=== PATIENT | male | born 1960 | race Caucasian/White ===

== ENCOUNTER 2022-08-06 11:33 | Observation (INO) | payer MEDICARE ==
[~2022-08-06] VITALS: Ht 170 cm; Wt 93.3 kg
[~2022-08-06 11:33] MED LIST: METH-732 PO; NAPR-1070 PO
[2022-08-06 13:22] LABS: BASOPHILS # (AUTO) 0.1 10^3/uL (0.0-0.1); BASOPHILS % (AUTO) 1 % (0-10); EOSINOPHILS # (AUTO) 0.2 10^3/uL (0.0-0.3); EOSINOPHILS % (AUTO) 3 % (0-10); HEMATOCRIT 37 % (40-54); HEMOGLOBIN 13.1 g/dL (13.3-17.7); LYMPHOCYTES # (AUTO) 2.3 10^3/uL (1.0-4.0); LYMPHOCYTES % (AUTO) 31 % (12-44); MEAN CORPUSCULAR HEMOGLOBIN 32 pg (25-34); MEAN CORPUSCULAR HGB CONC 35 g/dL (32-36); MEAN CORPUSCULAR VOLUME 90 fL (80-99); MEAN PLATELET VOLUME 10.7 fL (9.0-12.2); MONOCYTES # (AUTO) 0.7 10^3/uL (0.0-1.0); MONOCYTES % (AUTO) 9 % (0-12); NEUTROPHILS # (AUTO) 4.1 10^3/uL (1.8-7.8); NEUTROPHILS % (AUTO) 56 % (42-75); PLATELET COUNT 161 10^3/uL (130-400); WHITE BLOOD COUNT 7.3 10^3/uL (4.3-11.0)
--- NOTE | 2022-08-06 13:24 | ED GI ---
General Chief Complaint: Abdominal/GI Problems Stated Complaint: VOMITING | HEART PT | DIABETIC Nursing Triage Note: NVD FOR 4-5 DAYS, BLACK STOOL AND BLACK VOMIT,EVERY DAY VOMITED 0400 THIS A.M. Source of Information: Patient Exam Limitations: No Limitations History of Present Illness Date Seen by Provider: Aug 06, 2022 Time Seen by Provider: 12:15 Initial Comments Patient is a 62-year-old male who presents to the emergency department for relation of 4 to 5 days of vomiting and diarrhea. Patient states he typically only has vomiting in the morning. His states that the vomiting has been coffee-ground emesis in appearance and he has had dark black diarrhea. Patient denies any abdominal pain at the time of this interview but states he has had intermittent right upper quadrant abdominal pain. States he has been able to eat and drink without worsening of the pain. Denies any urinary symptoms. Denies any fever. Denies taking any anticoagulants at this time. No history of coagulopathies or bleeding diatheses. No recent prolonged NSAID use. Allergies and Home Medications Allergies Coded Allergies: Penicillins (Verified Allergy, Severe, RASH, 11/28/21) Patient Home Medication List Home Medication List Reviewed: Yes Methocarbamol (Methocarbamol) 750 Mg Tablet, 750 MG PO Q6-8HR Prescribed by: ARI WORKMAN on 11/28/21 1037 Naproxen Sodium (Anaprox Ds) 550 Mg Tablet, 550 MG PO BID PRN for PAIN-MODERATE (5-7) Prescribed by: ARI WORKMAN on 11/28/21 1037 Review of Systems Review of Systems Constitutional: no symptoms reported EENTM: No Symptoms Reported Respiratory: No Symptoms Reported Cardiovascular: No Symptoms Reported Gastrointestinal: See HPI, Diarrhea, Nausea, Vomiting Genitourinary: No Symptoms Reported Musculoskeletal: no symptoms reported Skin: no symptoms reported Psychiatric/Neurological: No Symptoms Reported Endocrine: No Symptoms Reported Hematologic/Lymphatic: No Symptoms Reported Past Hkriwaq-Gzgbyi-Wdqtoe Hx Patient Social History Tobacco Use?: Yes Tobacco type used: Cigarettes Smoking Status: Current Everyday Smoker Substance use?: Yes Substance type: Marijuana Alcohol Use?: No Past Medical History Surgery/Hospitalization HX: CABG, STENT, DIABETIC TYPE II, COPD, CHRONIC PAIN, APPENDECTOMY, NECK SURGERY 2 X'S Physical Exam Vital Signs Vital Signs - First Documented 08/06/22 12:12 Temp 36.5 Pulse 66 Resp 18 B/P (MAP) 133/56 (81) Pulse Ox 100 O2 Delivery Room Air Capillary Refill : Less Than 3 Seconds Height/Weight/BMI Height: '" Weight: lbs. oz. kg; 30.00 BMI Method: General Appearance: WD/WN, no apparent distress HEENT: PERRL/EOMI, normal ENT inspection, TMs normal, pharynx normal Neck: non-tender, full range of motion, supple, normal inspection Respiratory: chest non-tender, lungs clear, normal breath sounds, no respiratory distress, no accessory muscle use Cardiovascular: regular rate, rhythm Gastrointestinal: normal bowel sounds, non tender, soft Extremities: normal range of motion, non-tender, normal inspection Neurologic/Psychiatric: no motor/sensory deficits, alert, normal mood/affect, oriented x 3 Skin: normal color, warm/dry Progress/Results/Core Measures Results/Orders Lab Results Laboratory Tests Test 08/06/22 12:17 08/06/22 13:03 08/06/22 13:50 08/06/22 14:18 Range/Units Glucometer 98 70-110 MG/DL White Blood Count 7.3 4.3-11.0 10^3/uL Red Blood Count 4.14 L 4.30-5.52 10^6/uL Hemoglobin 13.1 L 13.3-17.7 g/dL Hematocrit 37 L 40-54 % Mean Corpuscular Volume 90 80-99 fL Mean Corpuscular Hemoglobin 32 25-34 pg Mean Corpuscular Hemoglobin Concent 35 32-36 g/dL Red Cell Distribution Width 13.9 10.0-14.5 % Platelet Count 161 130-400 10^3/uL Mean Platelet Volume 10.7 9.0-12.2 fL Immature Granulocyte % (Auto) 0 % Neutrophils (%) (Auto) 56 42-75 % Lymphocytes (%) (Auto) 31 12-44 % Monocytes (%) (Auto) 9 0-12 % Eosinophils (%) (Auto) 3 0-10 % Basophils (%) (Auto) 1 0-10 % Neutrophils # (Auto) 4.1 1.8-7.8 10^3/uL Lymphocytes # (Auto) 2.3 1.0-4.0 10^3/uL Monocytes # (Auto) 0.7 0.0-1.0 10^3/uL Eosinophils # (Auto) 0.2 0.0-0.3 10^3/uL Basophils # (Auto) 0.1 0.0-0.1 10^3/uL Immature Granulocyte # (Auto) 0.0 0.0-0.1 10^3/uL Sodium Level 136 135 135-145 MMOL/L Potassium Level 5.4 H 5.3 H 3.6-5.0 MMOL/L Chloride Level 105 105 98-107 MMOL/L Carbon Dioxide Level 20 L 19 L 21-32 MMOL/L Anion Gap 11 11 5-14 MMOL/L Blood Urea Nitrogen 55 H 55 H 7-18 MG/DL Creatinine 6.17 H 5.98 H 0.60-1.30 MG/DL Estimat Glomerular Filtration Rate 10 10 BUN/Creatinine Ratio 9 9 Glucose Level 107 H 98 70-105 MG/DL Calcium Level 9.5 9.2 8.5-10.1 MG/DL Corrected Calcium 9.3 8.5-10.1 MG/DL Total Bilirubin 0.6 0.1-1.0 MG/DL Aspartate Amino Transf (AST/SGOT) 15 5-34 U/L Alanine Aminotransferase (ALT/SGPT) 10 0-55 U/L Alkaline Phosphatase 101 40-136 U/L Total Protein 7.7 6.4-8.2 GM/DL Albumin 4.2 3.2-4.5 GM/DL Lipase 99 H 8-78 U/L Uric Acid 16.1 *H 2.6-7.2 MG/DL Urine Color YELLOW Urine Clarity CLEAR Urine pH 5.0 5-9 Urine Specific [place] >=1.030 1.016-1.022 Urine Protein TRACE H NEGATIVE Urine Glucose (UA) NEGATIVE NEGATIVE Urine Ketones NEGATIVE NEGATIVE Urine Nitrite NEGATIVE NEGATIVE Urine Bilirubin NEGATIVE NEGATIVE Urine Urobilinogen 0.2 < = 1.0 MG/DL Urine Leukocyte Esterase NEGATIVE NEGATIVE Urine RBC (Auto) TRACE-I H NEGATIVE Urine RBC RARE /HPF Urine WBC RARE /HPF Urine Squamous Epithelial Cells RARE /HPF Urine Crystals NONE /LPF Urine Bacteria NEGATIVE /HPF Urine Casts NONE /LPF Urine Mucus NEGATIVE /LPF Urine Culture Indicated NO My Orders Orders - OLIVE LAWSON RESIDENTIAL DESIGNER Cbc With Automated Diff (08/06/22 13:17) Comprehensive Metabolic Panel (08/06/22 13:17) Lipase (08/06/22 13:17) Iv/Invasive Line Insertion .IV INSERT (08/06/22 13:17) Lactated Ringers (Lr 1000 Ml Iv Solution (08/06/22 13:45) Ua Culture If Indicated (08/06/22 13:45) Bladder Scan (08/06/22 13:45) Basic Metabolic Panel (08/06/22 13:45) Us Renal Bilateral [id number] (08/06/22 15:21) Uric Acid (08/06/22 15:22) Ed Admission (Communication) (08/06/22 15:37) Vital Signs/I&O 08/06/22 12:12 Temp 36.5 Pulse 66 Resp 18 B/P (MAP) 133/56 (81) Pulse Ox 100 O2 Delivery Room Air Blood Pressure Mean: 81 FSBG Bedside Testing Finger Stick Blood Glucose: 98 Blood Glucose Action Taken: INFORMED Progress Progress Note : Progress Note Patient is nontoxic and well-hydrated on exam. Abdominal exam is reassuring without focal provocation of pain with palpation or rigidity/distention. Laboratory evaluation notable for markedly elevated creatinine. Urinalysis obtained which is reassuring. Will admit for further evaluation and treatment. Patient updated on plan of care and understanding verbalized. Hospitalist darek tabor agreed to admit. Departure Impression Primary Impression: PACO (acute kidney injury) Disposition: ADMITTED INPATIENT Condition: Stable Admissions Decision to Admit/Date: Aug 06, 2022 Time/Decision to Admit Time: 15:20 Departure-Patient Inst. Referrals: NILESH TERRAZAS (PCP/Family) Primary Care Physician OLIVE LAWSON APRN Aug 06, 2022 13:24
[2022-08-06 13:25] LABS: ALBUMIN 4.2 GM/DL (3.2-4.5)
[2022-08-06 13:26] LABS: POTASSIUM 5.4 MMOL/L (3.6-5.0)
[2022-08-06 13:27] LABS: CALCIUM 9.5 MG/DL (8.5-10.1)
[2022-08-06 13:28] LABS: TOTAL PROTEIN 7.7 GM/DL (6.4-8.2)
[2022-08-06 13:30] LABS: BILIRUBIN,TOTAL 0.6 MG/DL (0.1-1.0)
[2022-08-06 13:32] LABS: CREATININE SERUM 6.17 MG/DL (0.60-1.30)
[2022-08-06] MEDS ORDERED: LACTATED RINGERS 1,000 ML IV SCH (13:45)
[2022-08-06 14:12] LABS: CALCIUM 9.2 MG/DL (8.5-10.1); CREATININE SERUM 5.98 MG/DL (0.60-1.30); POTASSIUM 5.3 MMOL/L (3.6-5.0)
[2022-08-06 14:32] LABS: BILIRUBIN,URINE NEGATIVE (NEGATIVE); CLARITY,URINE CLEAR; COLOR,URINE YELLOW; GLUCOSE, URINE (UA) NEGATIVE (NEGATIVE); KETONES,URINE NEGATIVE (NEGATIVE); LEUKOCYTE ESTERASE ,URINE NEGATIVE (NEGATIVE); NITRITE,URINE NEGATIVE (NEGATIVE); PROTEIN,URINE TRACE (NEGATIVE)
[2022-08-06 14:40] LABS: BACTERIA,URINE NEGATIVE /HPF; RBC,URINE RARE /HPF; SQUAMOUS EPITHELIAL CELL,UR RARE /HPF; WBC,URINE RARE /HPF
--- NOTE | 2022-08-06 16:16 | Diagnostic Imaging Report ---
PROCEDURE: US renal bilateral. TECHNIQUE: Multiple real-time grayscale images were obtained over the kidneys in various projections, bilaterally. INDICATION: Renal failure. FINDINGS: Right kidney measures 12.0 x 5.6 x 6.6 cm. Left kidney measures 11.3 x 5.8 x 6.1 cm. There is no mass, calculus or hydronephrosis seen in either kidney. The urinary bladder appears normal. Both ureteral jets are seen. IMPRESSION: Normal-appearing renal ultrasound. Dictated by: Dictated on workstation # [id number]
[2022-08-06] MEDS ORDERED: MILK OF MAGNESIA 400 MG/5 ML 30 ML UDC PO PRN (20:45)
[2022-08-06] MEDS ORDERED: CALCIUM CARBONATE 500 MG (TUMS) TAB.CHEW PO PRN (20:45)
[2022-08-06] MEDS ORDERED: HYDROmorphone 2 MG/ML VIAL (DILAUDID) IV PRN (20:45)
[2022-08-06] MEDS ORDERED: LACTULOSE SYRUP 10GM/15ML (ENULOSE) 30ML UDC PO PRN (20:45)
[2022-08-06] MEDS ORDERED: ANTACID SUSP 30 ML UDC (MYLANTA) PO PRN (20:45)
[2022-08-06] MEDS ORDERED: diphenhydrAMINE 25 MG TAB (BENADRYL) PO PRN (20:45)
[2022-08-06] MEDS ORDERED: cloNIDine 0.1 MG (CATAPRES) TAB PO PRN (20:45)
[2022-08-06] MEDS ORDERED: ACETAMINOPHEN 325 MG TABLET PO PRN (20:45)
[2022-08-06] MEDS ORDERED: SODIUM POLYSTYRENE POWDER 15 GM BOTTLE PO ONE (20:45)
[2022-08-06] MEDS ORDERED: polyethylene glycoL POWDER 17 GM (MIRALAX) PACK PO PRN (20:45)
[2022-08-06] MEDS ORDERED: BISACODYL 10 MG SUPP (DULCOLAX) PR PRN (20:45)
[2022-08-06] MEDS ORDERED: diphenhydrAMINE 50 MG/ML INJ (BENADRYL) IVP PRN (20:45)
[2022-08-06] MEDS ORDERED: MELATONIN 3 MG TABLET PO PRN (20:45)
[2022-08-06] MEDS ORDERED: ONDANSETRON 4 MG (ZOFRAN) ORAL DISSOLVE TAB PO PRN (20:45)
[2022-08-06] MEDS: NS IV 1000 ML 1,000 ML IV SCH (21:43)
[2022-08-06] MEDS: DOCUSATE SODIUM 100 MG (COLACE) CAP PO SCH (21:43)
[2022-08-06] MEDS: SENNOSIDES 8.6 MG (SENOKOT) TAB PO SCH (21:43)
[2022-08-06] MEDS: SODIUM BICARBONATE 650 MG TABLET PO SCH (21:46)
[2022-08-06] MEDS: inSUlin ASPART (NovoLOG) 1 UNIT/0.01 ML (CHARGE PER UNIT) SC SCH (21:47)
[2022-08-06 21:54] VITALS: BP 133/56
[2022-08-06] MEDS ORDERED: RT-ALBUTEROL SULF 2.5 MG/3 ML PRE-MIX VIAL INH PRN (22:15)
[2022-08-07 00:11] VITALS: BP 161/72
[2022-08-07 03:24] VITALS: BP 147/73
[2022-08-07] MEDS: NS IV 1000 ML 1,000 ML IV SCH ×5 (03:24→23:02)
--- NOTE | 2022-08-07 05:58 | Short Stay Summary-Hospitalist ---
History of Present Illness Date Seen 08/07/22 Time Seen by a Provider: 11:30 Attending Physician Josue Harrison PCP Admitting Physician: Kenyatta Ornelas DO Attending Physician: Kenyatta Ornelas DO Referring Physician Date of Admission Aug 06, 2022 at 15:38 Home Medications & Allergies Home Medications Reviewed patient Home Medication Reconciliation performed by pharmacy medication reconciliations water and fire technician and/or nursing. Patients Allergies have been reviewed. Allergies Allergies Coded Allergies Penicillins (Verified Allergy, Severe, RASH, 11/28/21) Past Ehylbdw-Vpzsap-Sumbyz Hx Patient Social History Tobacco Use?: Yes Tobacco type used: Cigarettes Smoking Status: Current Everyday Smoker Substance use?: Yes Substance type: Marijuana Alcohol Use?: No Pt feels they are or have been: No Immunizations Up To Date Tetanus Booster (TDap): Unknown Current Status Primary Language: Welsh Preferred Spoken Language: Welsh Implanted or Applied Medical D: Orthopedic hardware, Stents Physical Exam Physical Exam Vital Signs Vital Signs - First Documented 08/06/22 08/06/22 08/07/22 12:12 21:54 08:19 Temp 36.5 Pulse 66 Resp 18 B/P (MAP) 133/56 (81) Pulse Ox 100 O2 Delivery Room Air O2 Flow Rate 0.00 FiO2 21 Capillary Refill : Less Than 3 Seconds Height, Weight, BMI Height: '" Weight: lbs. oz. kg; 30.65 BMI Method: Results Results/Procedures Labs Laboratory Tests 08/06/22 13:03 08/06/22 13:50 08/07/22 05:57 Patient resulted labs reviewed. KENYATTA ORNELAS DO Aug 07, 2022 05:58
[2022-08-07 06:10] LABS: BASOPHILS # (AUTO) 0.1 10^3/uL (0.0-0.1); BASOPHILS % (AUTO) 1 % (0-10); LYMPHOCYTES # (AUTO) 2.4 10^3/uL (1.0-4.0); MEAN CORPUSCULAR HGB CONC 35 g/dL (32-36); NEUTROPHILS % (AUTO) 45 % (42-75)
[2022-08-07 06:12] LABS: EOSINOPHILS # (AUTO) 0.2 10^3/uL (0.0-0.3); EOSINOPHILS % (AUTO) 4 % (0-10); HEMATOCRIT 34 % (40-54); HEMOGLOBIN 12.1 g/dL (13.3-17.7); LYMPHOCYTES % (AUTO) 40 % (12-44); MEAN CORPUSCULAR HEMOGLOBIN 32 pg (25-34); MEAN CORPUSCULAR VOLUME 90 fL (80-99); MEAN PLATELET VOLUME 10.7 fL (9.0-12.2); MONOCYTES # (AUTO) 0.6 10^3/uL (0.0-1.0); MONOCYTES % (AUTO) 10 % (0-12); NEUTROPHILS # (AUTO) 2.7 10^3/uL (1.8-7.8); PLATELET COUNT 133 10^3/uL (130-400)
[2022-08-07] MEDS: inSUlin ASPART (NovoLOG) 1 UNIT/0.01 ML (CHARGE PER UNIT) SC SCH ×4 (06:19→20:41)
[2022-08-07 06:24] LABS: ALBUMIN 3.7 GM/DL (3.2-4.5); BILIRUBIN,TOTAL 0.5 MG/DL (0.1-1.0); CALCIUM 8.8 MG/DL (8.5-10.1); CREATININE SERUM 5.5 MG/DL (0.60-1.30); POTASSIUM 5.1 MMOL/L (3.6-5.0)
[2022-08-07 07:58] VITALS: BP 165/78
[2022-08-07] MEDS: DOCUSATE SODIUM 100 MG (COLACE) CAP PO SCH ×2 (08:45→21:00)
[2022-08-07] MEDS: SENNOSIDES 8.6 MG (SENOKOT) TAB PO SCH ×2 (08:45→21:00)
[2022-08-07] MEDS: SODIUM BICARBONATE 650 MG TABLET PO SCH ×2 (08:47→21:35)
[2022-08-07] MEDS ORDERED: CITA20TA9 PO (10:41)
[2022-08-07] MEDS ORDERED: LORA10TA7 PO (10:41)
[2022-08-07] MEDS ORDERED: METO50TA15 PO (10:41)
[2022-08-07] MEDS ORDERED: GLIP1TAB6 PO (10:41)
[2022-08-07] MEDS ORDERED: ASPI-1238 PO (10:41)
[2022-08-07] MEDS ORDERED: ATOR80TA76 PO (10:41)
[2022-08-07] MEDS ORDERED: PANT20TA18 PO (10:41)
[2022-08-07] MEDS ORDERED: LISI20TA26 PO (10:41)
[2022-08-07 11:07] VITALS: BP 164/76
--- NOTE | 2022-08-07 14:24 | Consultation ---
History of Present Illness History of Present Illness Patient Consulted On(dirk/time) 08/07/22 14:23 Date Seen by Provider: Aug 07, 2022 (n) Time Seen by Provider: 14:23 Reason for Visit: Paco History of Present Illness Pt is a very pleasant 62 y/o M with h/o dm, copd, HTN, and CAD s/p cabg and pci who was admitted with n/v/d. Noted to have a creatinine of almost 6. Denies h/o renal disease. Pt has been having n/v for several days along with diarrhea. 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 Denies nsaid use. Also on lisinopril. Takes baby aspirin per day. Pt did not check his bp at home but did feel dizzy for at least 1 days after several days of n/v/d. Allergies and Home Medications Allergies Coded Allergies: Penicillins (Verified Allergy, Severe, RASH, 11/28/21) Patient Home Medication List Home Medication List Reviewed: Yes Aspirin (Aspirin EC) 81 Mg Tablet.dr, 81 MG PO DAILY, (Reported) Entered as Reported by: BALA CERVANTES on 08/07/221040 Last Action: Held Atorvastatin Calcium (Atorvastatin Calcium) 80 Mg Tablet, 80 MG PO DAILY, (Reported) Entered as Reported by: BALA CERVANTES on 08/07/221040 Last Action: Held Citalopram Hydrobromide (Citalopram HBr) 20 Mg Tablet, 20 MG PO DAILY, (Reported) Entered as Reported by: BALA CERVANTES on 08/07/221040 Last Action: Continued Glipizide/Metformin HCl (Glipizide-Metformin 5-500 mg) 5 Mg-500 Mg Tablet, 2 EA PO BID WITH MEALS, (Reported) Entered as Reported by: BALA CERVANTES on 08/07/221040 Last Action: Held Lisinopril (Lisinopril) 20 Mg Tablet, 20 MG PO DAILY, (Reported) Entered as Reported by: BALA CERVANTES on 08/07/221040 Last Action: Held Loratadine (Loratadine) 10 Mg Tablet, 10 MG PO DAILY, (Reported) Entered as Reported by: BALA CERVANTES on 08/07/221040 Last Action: Continued Metoprolol Tartrate (Metoprolol Tartrate) 50 Mg Tablet, 50 MG PO BID, (Reported) Entered as Reported by: BALA CERVANTES on 08/07/22 1041 Last Action: Continued Pantoprazole Sodium (Pantoprazole Sodium) 20 Mg Tablet.dr, 20 MG PO DAILY, (Reported) Entered as Reported by: BALA CERVANTES on 08/07/22 1041 Last Action: Continued Discontinued Medications Methocarbamol (Methocarbamol) 750 Mg Tablet, 750 MG PO Q6-8HR Discontinued Reason: No Longer Taking Prescribed by: ARI WORKMAN on 11/28/21 1037 Last Action: Discontinued Naproxen Sodium (Anaprox Ds) 550 Mg Tablet, 550 MG PO BID PRN for PAIN-MODERATE (5-7) Discontinued Reason: No Longer Taking Prescribed by: ARI WORKMAN on 11/28/21 1037 Last Action: Discontinued Past Jmpatzn-Rzlarz-Wqhofj Hx Patient Social History Tobacco Use?: Yes Tobacco type used: Cigarettes Smoking Status: Current Everyday Smoker Substance use?: Yes Substance type: Marijuana Alcohol Use?: No Pt feels they are or have been: No Immunizations Up To Date Influenza Vaccine Up-to-Date: No; Not Current Past Medical History Surgery/Hospitalization HX: CABG, STENT, DIABETIC TYPE II, COPD, CHRONIC PAIN, APPENDECTOMY, NECK SURGERY 2 X'S Review of Systems-General Constitutional: see HPI Physical Exam-General Problems Physical Exam Vital Signs Vital Signs - First Documented 08/06/22 08/06/22 08/07/22 12:12 21:54 08:19 Temp 36.5 Pulse 66 Resp 18 B/P (MAP) 133/56 (81) Pulse Ox 100 O2 Delivery Room Air O2 Flow Rate 0.00 FiO2 21 Capillary Refill : Less Than 3 Seconds General Appearance: no apparent distress Neck: supple Cardiovascular: no JVD Neurologic/Psychiatric: oriented x 3 Skin: normal color Assessment/Plan Assessment/Plan Admission Diagnosis/Plan PACO baseline normal renal u/s unrevealing Cr up to 6.17 and slightly better at 5.5 today suspect ATN in setting of volume depletion and probable hypotension while on lisinopril denies nsaids and discussed avoiding them HOLD lisinopril on dc and do not resume until paco resolves renally dose meds recommend continuing to volume expand repeat uric acid in am to ensure it is trending down If cr improving tomorrow, then will plan to f/u 08/11 in my [facility] with repeat labs; pt understands and is agreeable n/v/d supportive care prn meds ordered high uric acid likely due to volume depletion should improve with volume expansion met acidosis recommend na bicarb 1300 bid Thank you for allowing me to participate in the care of this very pleasant pat ient. MAYCOL CABRERA MD Aug 07, 2022 14:24
[2022-08-07 16:02] VITALS: BP 145/75
--- NOTE | 2022-08-07 16:05 | History & Physical-Hospitalist ---
PETER MOJICA 08/07/22 1605: History of Present Illness HPI/Chief Complaint George Mott is a 62-year-old male who presented to the emergency department for relation of 4 to 5 days of vomiting and diarrhea 08/06/22. Patient states he typically only has vomiting in the morning. His states that the vomiting has been coffee-ground emesis in appearance and he has had dark black diarrhea. Patient denies any abdominal pain at the time of this interview but states he has had intermittent right upper quadrant abdominal pain. States he has been able to eat and drink without worsening of the pain. Denies any urinary symptoms. Denies any fever. Denies taking any anticoagulants at this time. No history of coagulopathies or bleeding diatheses. No recent prolonged NSAID use. Today Pt was seen lying in bed, and mentioned that he drank coffee with beakfast and it made his RUQ hurt, his history is suspicious of duodenal ulcer, but he is most concerned of his PACO. Pt consulted with Dr. Salmon in Nephrology, who suggested regulating his fluids and then following up with her on 08/11/22. George was very pleasent and denied any BM or vomiting in the last 24hrs. His Uric acid levels will be monitored tomorrow to confirm volume correction, and he has agreed to being DCd tomorrow if everything looks improved. Source: patient Date Seen 08/07/22 Time Seen by a Provider: 10:10 Attending Physician Josue Harrison PCP Admitting Physician: Kenyatta Kohli DO Attending Physician: Kenyatta Kohli DO Referring Physician Date of Admission Aug 06, 2022 at 15:38 Home Medications & Allergies Home Medications Reviewed patient Home Medication Reconciliation performed by pharmacy medication reconciliations weight reducing technician and/or nursing. Patients Allergies have been reviewed. Allergies Allergies Coded Allergies Penicillins (Verified Allergy, Severe, RASH, 11/28/21) Past Mrcrbio-Dkrssf-Tebhfd Hx Patient Social History Marrital Status: Tobacco Use?: Yes Tobacco type used: Cigarettes Smoking Status: Current Everyday Smoker Substance use?: Yes Substance type: Marijuana Alcohol Use?: No Pt feels they are or have been: No Immunizations Up To Date Tetanus Booster (TDap): Unknown Current Status Primary Language: Guinean Preferred Spoken Language: Guinean Implanted or Applied Medical D: Orthopedic hardware, Stents Review of Systems Constitutional: No chills, No diaphoresis, No dizziness, No fever, No malaise EENTM: no symptoms reported Respiratory: no symptoms reported Cardiovascular: no symptoms reported Gastrointestinal: RUQ, diarrhea, nausea, vomiting Genitourinary: no symptoms reported Musculoskeletal: no symptoms reported Skin: no symptoms reported Psychiatric/Neurological: Anxiety Physical Exam Physical Exam Vital Signs Vital Signs - First Documented 08/06/22 08/06/22 08/07/22 12:12 21:54 08:19 Temp 36.5 Pulse 66 Resp 18 B/P (MAP) 133/56 (81) Pulse Ox 100 O2 Delivery Room Air O2 Flow Rate 0.00 FiO2 21 Capillary Refill : Less Than 3 Seconds Height, Weight, BMI Height: '" Weight: lbs. oz. kg; 30.65 BMI Method: General Appearance: No Apparent Distress, WD/WN, Chronically ill Neck: Full Range of Motion, Normal Inspection, Non Tender, Supple Respiratory: Chest Non Tender, Lungs Clear, Normal Breath Sounds, No Accessory Muscle Use, No Respiratory Distress Cardiovascular: Regular Rate, Rhythm, No Edema, No Gallop, No JVD, No Murmur, Normal Peripheral Pulses Gastrointestinal: Normal Bowel Sounds, No Organomegaly, No Pulsatile Mass, Non Tender, Soft Back: Normal Inspection, No CVA Tenderness, No Vertebral Tenderness Extremity: Normal Capillary Refill, Normal Inspection, Normal Range of Motion, Non Tender, No Calf Tenderness Neurologic/Psychiatric: Alert, Oriented x3, No Motor/Sensory Deficits, Normal Mood/Affect Skin: Normal Color, Warm/Dry Lymphatic: No Adenopathy Results Results/Procedures Labs Laboratory Tests 08/06/22 13:03 08/06/22 13:50 08/07/22 05:57 Patient resulted labs reviewed. Assessment/Plan Admission Diagnosis PACO(Acute Kidney Injury) Reason for Inpatient Admission: Volume regulation, kidney monitoring Assessment and Plan A: PACO N/V/D Hyperuricemia Metabolic Acidosis Hyperkalemia HTN DM P: repeat uric acid in am to ensure it is trending down If cr improving tomorrow, then will plan to f/u 08/11 W/ crust sorter in her [facility] supportive care prn meds ordered fluid volume expansion na bicarb 1300 bid KENYATTA KOHLI DO 08/08/22 0538: History of Present Illness Source: patient Exam Limitations: no limitations Past Xylrcdl-Hvsupm-Kipndf Hx Patient Social History Marrital Status: Employed/Student: unemployed Past Medical History Hypertension Diabetes, Non-Insulin dep Review of Systems Constitutional: see HPI, weakness Gastrointestinal: nausea, vomiting Physical Exam Physical Exam General Appearance: No Apparent Distress, Chronically ill Respiratory: Lungs Clear, Normal Breath Sounds Cardiovascular: Regular Rate, Rhythm Assessment/Plan Admission Diagnosis Acute kidney injury Recent nausea and vomiting Diabetes Hypertension Plan: Continue IV fluids Nephrology consult Admission Status: Observation Reason for Inpatient Admission: paco Supervisory-Addendum Brief Verification & Attestation Participated in pt care: history, MDM, physical Personally performed: exam, history, MDM, supervision of care Care discussed with: Medical Student Procedures: n/a Results interpretation: Verified all documentation Verification and Attestation of Medical Student E/M Service A medical student performed and documented this service in my presence. I reviewed and verified all information documented by the medical student and made modifications to such information, when appropriate. I personally performed the physical exam and medical decision making. Kenyatta Kohli, Aug 08, 2022,05:38 PETER MOJICA Aug 07, 2022 16:05 KENYATTA KOHLI DO Aug 08, 2022 05:38
[2022-08-07 19:25] VITALS: BP 175/78
[2022-08-07] MEDS: meTOprolol TARTRATE 50 MG (LOPRESSOR) TAB PO SCH (21:35)
[2022-08-07] MEDS: ONDANSETRON 4 MG/2 ML (SDV) Z0FRAN IV PRN (23:02)
[2022-08-08] VITALS: BP 159/77
[2022-08-08 04:00] VITALS: BP 142/81
[2022-08-08] MEDS: NS IV 1000 ML 1,000 ML IV SCH (05:03)
[2022-08-08] MEDS: inSUlin ASPART (NovoLOG) 1 UNIT/0.01 ML (CHARGE PER UNIT) SC SCH ×2 (05:13→11:47)
[2022-08-08 06:11] LABS: BASOPHILS % (AUTO) 1 % (0-10); EOSINOPHILS # (AUTO) 0.2 10^3/uL (0.0-0.3); EOSINOPHILS % (AUTO) 3 % (0-10); HEMATOCRIT 32 % (40-54); HEMOGLOBIN 11.3 g/dL (13.3-17.7); LYMPHOCYTES # (AUTO) 1.9 10^3/uL (1.0-4.0); LYMPHOCYTES % (AUTO) 35 % (12-44); MEAN CORPUSCULAR HEMOGLOBIN 32 pg (25-34); MEAN CORPUSCULAR HGB CONC 35 g/dL (32-36); MEAN CORPUSCULAR VOLUME 90 fL (80-99); MEAN PLATELET VOLUME 10.5 fL (9.0-12.2); MONOCYTES # (AUTO) 0.4 10^3/uL (0.0-1.0); MONOCYTES % (AUTO) 7 % (0-12); NEUTROPHILS # (AUTO) 2.9 10^3/uL (1.8-7.8); NEUTROPHILS % (AUTO) 54 % (42-75); PLATELET COUNT 124 10^3/uL (130-400); WHITE BLOOD COUNT 5.3 10^3/uL (4.3-11.0)
[2022-08-08] MEDS: ONDANSETRON 4 MG/2 ML (SDV) Z0FRAN IV PRN (06:11)
[2022-08-08 06:35] LABS: ALBUMIN 3.5 GM/DL (3.2-4.5); BILIRUBIN,TOTAL 0.5 MG/DL (0.1-1.0); CALCIUM 8.7 MG/DL (8.5-10.1); CREATININE SERUM 4.61 MG/DL (0.60-1.30); POTASSIUM 5.1 MMOL/L (3.6-5.0); TOTAL PROTEIN 6.5 GM/DL (6.4-8.2)
[2022-08-08 07:31] VITALS: BP 154/72
[2022-08-08] MEDS: meTOprolol TARTRATE 50 MG (LOPRESSOR) TAB PO SCH (08:08)
[2022-08-08] MEDS: SODIUM BICARBONATE 650 MG TABLET PO SCH (08:08)
[2022-08-08] MEDS ORDERED: PANTOPRAZOLE 20 MG TABLET (PROTONIX) PO SCH (09:00)
[2022-08-08] MEDS ORDERED: LORATADINE (CLARITIN) 10 MG TAB PO SCH (09:00)
[2022-08-08] MEDS: DOCUSATE SODIUM 100 MG (COLACE) CAP PO SCH (10:07)
[2022-08-08] MEDS: SENNOSIDES 8.6 MG (SENOKOT) TAB PO SCH (10:07)
[2022-08-08] MEDS ORDERED: NF-SODBICA PO (11:44)
--- NOTE | 2022-08-08 11:46 | Discharge Summary ---
Discharge Summary Hospital Course Was the Problem List Reviewed?: Yes Problems/Dx: (1) PACO (acute kidney injury) Hospital Course Date of Admission: Aug 06, 2022 at 15:38 Admission Diagnosis : Family Physician/Provider: Josue Harrison Date of Discharge: 08/08/22 Discharge Diagnosis: [ ] Hospital Course: Standard hospital course after he was admitted for acute kidney injury from nausea vomiting. Nephrology Dr. Salmon consulted due to profound creatinine of 6.1. Uric acid was elevated consistent with acute kidney injury. His creatinine did improve to the 4 range so several meds were stopped at discharge and he will close follow-up with nephrology. Labs and Pending Lab Test: Laboratory Tests 08/07/22 16:04: Glucometer 205H 08/07/22 16:05: Glucometer 203H 08/07/22 20:32: Glucometer 143H 08/08/22 05:12: Glucometer 123H 08/08/22 06:00: White Blood Count 5.3, Red Blood Count 3.56L, Hemoglobin 11.3L, Hematocrit 32L, Mean Corpuscular Volume 90, Mean Corpuscular Hemoglobin 32, Mean Corpuscular Hemoglobin Concent 35, Red Cell Distribution Width 13.7, Platelet Count 124L, Mean Platelet Volume 10.5, Immature Granulocyte % (Auto) 0, Neutrophils (%) (Auto) 54, Lymphocytes (%) (Auto) 35, Monocytes (%) (Auto) 7, Eosinophils (%) (Auto) 3, Basophils (%) (Auto) 1, Neutrophils # (Auto) 2.9, Lymphocytes # (Auto) 1.9, Monocytes # (Auto) 0.4, Eosinophils # (Auto) 0.2, Basophils # (Auto) 0.0, Immature Granulocyte # (Auto) 0.0, Sodium Level 138, Potassium Level 5.1H, Chloride Level 113H, Carbon Dioxide Level 16L, Anion Gap 9, Blood Urea Nitrogen 49H, Creatinine 4.61#H, Estimat Glomerular Filtration Rate 14, BUN/Creatinine Ratio 11, Glucose Level 141H, Uric Acid 11.5H, Calcium Level 8.7, Corrected Calcium 9.1, Total Bilirubin 0.5, Aspartate Amino Transf (AST/SGOT) 16, Alanine Aminotransferase (ALT/SGPT) 9, Alkaline Phosphatase 79, Total Protein 6.5, Albumin 3.5 08/08/22 10:05: Glucometer 168H Home Meds Active Sodium Bicarbonate 650 Mg Tablet 1,300 Mg PO BID Reported Loratadine 10 Mg Tablet 10 Mg PO DAILY Aspirin EC (Aspirin) 81 Mg Tablet.dr 81 Mg PO DAILY Metoprolol Tartrate 50 Mg Tablet 50 Mg PO BID Citalopram HBr (Citalopram Hydrobromide) 20 Mg Tablet 20 Mg PO DAILY Atorvastatin Calcium 80 Mg Tablet 80 Mg PO DAILY Pantoprazole Sodium 20 Mg Tablet.dr 20 Mg PO DAILY Lisinopril 20 Mg Tablet 20 Mg PO DAILY Glipizide-Metformin 5-500 mg (Glipizide/Metformin HCl) 5 Mg-500 Mg Tablet 2 Ea PO BID WITH MEALS Assessment/Pt Instructions Dr. Salmon on Wednesday Discharge Planning: <30 minutes discharge planning Discharge Instructions Discharge Diet: ADA Diet Discharge Physical Examination Vital Signs Vital Signs Date Time Temp Pulse Resp B/P (MAP) Pulse Ox O2 Delivery O2 Flow Rate FiO2 08/08/22 08:00 Room Air 08/08/22 07:31 36.2 66 18 154/72 (99) 94 08/08/22 07:22 0.00 08/06/22 21:54 21 General Appearance: No Apparent Distress, WD/WN, Chronically ill Allergies: Coded Allergies: Penicillins (Verified Allergy, Severe, RASH, 11/28/21) Discharge Summary Date of Admission Aug 06, 2022 at 15:38 Date of Discharge Discharge Date: Aug 08, 2022 Admission Diagnosis Acute kidney injury Recent nausea and vomiting Diabetes Hypertension Plan: Continue IV fluids Nephrology consult JUAN DANIEL KOHLI DO Aug 08, 2022 11:46
[2022-08-08 11:55] VITALS: BP 174/75
[2022-08-08 12:10] VITALS: BP 174/75
== END 2022-08-08 11:42 | disposition home or self-care (01) ==
LOC: EDUNIT# 11:33 → ER 11:35 → UNDOADMOB 15:38 → 4TH 15:38 → UNDODISOB 08-08 12:10
PROVIDERS: ADMIT Internal Medicine; ATTEND Internal Medicine
DX: N17.9 Acute kidney failure, unspecified (principal); E11.9 Type 2 diabetes mellitus without complications; I10 Essential (primary) hypertension; F17.210 Nicotine dependence, cigarettes, uncomplicated; E87.20 Acidosis, unspecified; Z79.84 Long term (current) use of oral hypoglycemic drugs; Z79.899 Other long term (current) drug therapy; Z28.310 Unvaccinated for COVID-19
CPT/HCPCS: 76770; 80048; 80053 ×3; 81000; 82947 ×3; 83690; 84550 ×2; 85025 ×3; 94760 ×2; 96361 ×2; 96372 ×3; 96375; 96376; 99282; G0378; 36415

== ENCOUNTER → 2022-08-10 | Outpatient (CLI) | payer MEDICARE ==
[~2022-08-10] MED LIST changes: +ASPI-1238 PO; +ATOR80TA76 PO; +CITA20TA9 PO; +GLIP1TAB6 PO; +LISI20TA26 PO; +LORA10TA7 PO; +METO50TA15 PO; +NF-SODBICA PO; +PANT20TA18 PO
[2022-08-10 14:49] LABS: HEMATOCRIT 33 % (40-54); HEMOGLOBIN 11.6 g/dL (13.3-17.7); MEAN CORPUSCULAR HEMOGLOBIN 32 pg (25-34); MEAN CORPUSCULAR HGB CONC 35 g/dL (32-36); MEAN CORPUSCULAR VOLUME 90 fL (80-99); MEAN PLATELET VOLUME 10.4 fL (9.0-12.2); PLATELET COUNT 140 10^3/uL (130-400); WHITE BLOOD COUNT 6.8 10^3/uL (4.3-11.0)
[2022-08-10 14:50] LABS: BILIRUBIN,URINE NEGATIVE (NEGATIVE); CLARITY,URINE CLEAR; COLOR,URINE YELLOW; GLUCOSE, URINE (UA) TRACE (NEGATIVE); KETONES,URINE NEGATIVE (NEGATIVE); LEUKOCYTE ESTERASE ,URINE NEGATIVE (NEGATIVE); NITRITE,URINE NEGATIVE (NEGATIVE); PH,URINE 5.5 (5-9); PROTEIN,URINE 1+ (NEGATIVE)
[2022-08-10 14:57] LABS: BACTERIA,URINE NEGATIVE /HPF
[2022-08-10 15:05] LABS: CALCIUM 9.5 MG/DL (8.5-10.1); CREATININE SERUM 3.92 MG/DL (0.60-1.30); PHOSPHORUS 3.2 MG/DL (2.3-4.7); POTASSIUM 4.3 MMOL/L (3.6-5.0)
== END ==
LOC: LAB 14:22
PROVIDERS: ATTEND Internal Medicine Nephrology
DX: N17.9 Acute kidney failure, unspecified (principal)
CPT/HCPCS: 36415; 80069; 81000; 82570; 84156; 85027

== ENCOUNTER 2023-05-10 14:05 | Emergency (ER) | payer MEDICARE | END 2023-05-10 14:15 | disposition left against medical advice (07) | LOC: EDUNIT# 14:05 → ER 14:07 | DX: R06.02 Shortness of breath (principal); Z20.822 Contact with and (suspected) exposure to COVID-19 ==

== ENCOUNTER 2023-05-10 20:42 | Observation (INO) | payer MEDICARE ==
[~2023-05-10] VITALS: Ht 170 cm; Wt 90.4 kg
[2023-05-10] MEDS ORDERED: ONDANSETRON INJECTION 4 MG/2 ML (SDV) IVP ONE (21:15)
[2023-05-10] MEDS ORDERED: ASPIRIN 81 MG CHEWABLE TABLET PO ONE (21:15)
--- NOTE | 2023-05-10 21:20 | ED General ---
General Chief Complaint: Cardiac/General Problems Stated Complaint: VOMITING, DIZZINESS, ABD PAIN Source of Information: Patient Exam Limitations: No Limitations History of Present Illness Date Seen by Provider: May 10, 2023 Time Seen by Provider: 21:00 Initial Comments Patient is a 62-year-old male who presents to the emergency department with a chief complaint of "chest heaviness" nausea vomiting, feelings of dizziness. Patient states his symptoms have been ongoing for "days". He states that he was seen here early at about 2:00 this afternoon and "nobody would help me". 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 He continues to smoke "every chance I get" cigarettes as well as marijuana. He rates the chest tightness at a "7". He is mildly short of breath. He denies urinary problems other than stating he is not urinating as much as usual. No diarrhea. He endorses a little right upper quadrant abdominal pain. Patient states that he thinks there was blood in his vomit however upon inspection it appears to be food product. He took 1 baby aspirin today. He also states that he took his other daily medications but thi nks that he vomited them up. Of note the nurse at the bedside was also the nurse who triaged him earlier today (around 2pm). She states that he came in irate, belligerent, verbally abusive and when she spoke with him about his behaviors he turned around and left without being seen by a physician. Timing/Duration: Other ("days") Severity: Moderate Associated Systoms: Chest Pain ("heaviness"), Nausea/Vomiting, Weakness Allergies and Home Medications Allergies Coded Allergies: Penicillins (Verified Allergy, Severe, RASH, 11/28/21) Patient Home Medication List Home Medication List Reviewed: Yes Aspirin (Aspirin EC) 81 Mg Tablet.dr, 81 MG PO DAILY, (Reported) Entered as Reported by: BALA CERVANTES on 08/07/22 1041 Atorvastatin Calcium (Atorvastatin Calcium) 80 Mg Tablet, 80 MG PO DAILY, (Reported) Entered as Reported by: BALA CERVANTES on 08/07/22 1041 Citalopram Hydrobromide (Citalopram HBr) 20 Mg Tablet, 20 MG PO DAILY, (Reported) Entered as Reported by: BALA CERVANTES on 08/07/22 1041 Loratadine (Loratadine) 10 Mg Tablet, 10 MG PO DAILY, (Reported) Entered as Reported by: BALA CERVANTES on 08/07/22 1041 Metoprolol Tartrate (Metoprolol Tartrate) 50 Mg Tablet, 50 MG PO BID, (Reported) Entered as Reported by: BALA CERVANTES on 08/07/22 1041 Pantoprazole Sodium (Pantoprazole Sodium) 20 Mg Tablet.dr, 20 MG PO DAILY, (Reported) Entered as Reported by: BALA CERVANTES on 08/07/22 1041 Sodium Bicarbonate (Sodium Bicarbonate) 650 Mg Tablet, 1,300 MG PO BID Prescribed by: JUAN DANIEL KOHLI on 08/08/22 1144 Review of Systems Review of Systems Constitutional: see HPI EENTM: no symptoms reported Respiratory: short of breath Cardiovascular: chest pain Gastrointestinal: abdominal pain (RUQ), nausea, vomiting Genitourinary: decreased output Musculoskeletal: no symptoms reported Skin: no symptoms reported Psychiatric/Neurological: Other (dizziness) Past [id number]-Kbltdf Hx Past Medical History Surgery/Hospitalization HX: CABG, STENT, DIABETIC TYPE II, COPD, CHRONIC PAIN, APPENDECTOMY, NECK SURGERY 2 X'S Hypertension Diabetes, Non-Insulin dep Physical Exam Vital Signs Vital Signs - First Documented 05/10/23 21:02 Temp 36.9 Pulse 89 Resp 18 B/P (MAP) 190/96 (127) O2 Delivery Room Air Capillary Refill : Height, Weight, BMI Height: '" Weight: lbs. oz. kg; 32.28 BMI Method: General Appearance: WD/WN, Chronically ill Eyes: Bilateral Eye Normal Inspection, Bilateral Eye PERRL, Bilateral Eye EOMI HEENT: PERRL/EOMI Neck: Normal Inspection Respiratory: Lungs Clear, Normal Breath Sounds, No Accessory Muscle Use, No Respiratory Distress Cardiovascular: Regular Rate, Rhythm, Normal Peripheral Pulses (1+ radial bilateral) Gastrointestinal: Soft, Tenderness (RUQ - neg Ryder's sign) Extremity: Normal Inspection, Normal Range of Motion, No Pedal Edema Neurologic/Psychiatric: Alert, Oriented x3, No Motor/Sensory Deficits, Normal Mood/Affect, Other (slightly verbally agressive; a little beligerant but redirectable) Skin: Normal Color, Warm/Dry Progress/Results/Core Measures Suspected Sepsis SIRS Temperature: Pulse: Respiratory Rate: Laboratory Tests 9/18/23 21:21: White Blood Count 9.0 Blood Pressure / Mean: Laboratory Tests 05/10/23 21:21: Creatinine 2.08H, INR Comment 1.1, Platelet Count 194, Total Bilirubin 1.0 Results/Orders Lab Results Laboratory Tests Test 05/10/23 21:21 Range/Units White Blood Count 9.0 4.3-11.0 10^3/uL Red Blood Count 4.01 L 4.30-5.52 10^6/uL Hemoglobin 13.1 L 13.3-17.7 g/dL Hematocrit 36 L 40-54 % Mean Corpuscular Volume 90 80-99 fL Mean Corpuscular Hemoglobin 33 25-34 pg Mean Corpuscular Hemoglobin Concent 36 32-36 g/dL Red Cell Distribution Width 13.7 10.0-14.5 % Platelet Count 194 130-400 10^3/uL Mean Platelet Volume 10.6 9.0-12.2 fL Immature Granulocyte % (Auto) 0 % Neutrophils (%) (Auto) 78 H 42-75 % Lymphocytes (%) (Auto) 14 12-44 % Monocytes (%) (Auto) 7 0-12 % Eosinophils (%) (Auto) 0 0-10 % Basophils (%) (Auto) 1 0-10 % Neutrophils # (Auto) 7.0 1.8-7.8 10^3/uL Lymphocytes # (Auto) 1.3 1.0-4.0 10^3/uL Monocytes # (Auto) 0.6 0.0-1.0 10^3/uL Eosinophils # (Auto) 0.0 0.0-0.3 10^3/uL Basophils # (Auto) 0.1 0.0-0.1 10^3/uL Immature Granulocyte # (Auto) 0.0 0.0-0.1 10^3/uL Prothrombin Time 14.0 12.2-14.7 SEC INR Comment 1.1 0.8-1.4 Activated Partial Thromboplast Time 35 24-35 SEC Sodium Level 137 135-145 MMOL/L Potassium Level 4.7 3.6-5.0 MMOL/L Chloride Level 99 98-107 MMOL/L Carbon Dioxide Level 20 L 21-32 MMOL/L Anion Gap 18 H 5-14 MMOL/L Blood Urea Nitrogen 22 H 7-18 MG/DL Creatinine 2.08 H 0.60-1.30 MG/DL Estimat Glomerular Filtration Rate 36 BUN/Creatinine Ratio 11 Glucose Level 340 H 70-105 MG/DL Calcium Level 10.0 8.5-10.1 MG/DL Corrected Calcium 8.5-10.1 MG/DL Magnesium Level 1.4 L 1.6-2.4 MG/DL Total Bilirubin 1.0 0.1-1.0 MG/DL Aspartate Amino Transf (AST/SGOT) 17 5-34 U/L Alanine Aminotransferase (ALT/SGPT) 13 0-55 U/L Alkaline Phosphatase 105 40-136 U/L Myoglobin 126.3 H 10.0-92.0 NG/ML Troponin I 0.049 H <0.028 NG/ML Total Protein 8.1 6.4-8.2 GM/DL Albumin 4.6 H 3.2-4.5 GM/DL My Orders Orders - MERA URBINA MD Ekg Tracing (05/10/23 21:06) Cbc With Automated Diff (05/10/23 21:13) Magnesium (05/10/23 21:13) Chest 1 View, Ap/Pa Only (05/10/23 21:13) Comprehensive Metabolic Panel (05/10/23 21:13) Myoglobin Serum (05/10/23 21:13) Protime With Inr (05/10/23 21:13) Partial Thromboplastin Time (05/10/23 21:13) O2 (05/10/23 21:13) Monitor-Rhythm Ecg Trace Only (05/10/23 21:13) Lipid Panel (05/11/23 06:00) Ed Iv/Invasive Line Start (05/10/23 21:13) Troponin I [place] (05/10/23 21:13) Aspirin Chewable Tablet (Aspirin Chewabl (05/10/23 21:15) Ondansetron Injection (Ondansetron Inj (05/10/23 21:15) Nitroglycerin Ointment (Nitroglycerin (05/10/23 23:00) Enoxaparin Injection (Enoxaparin Injecti (05/10/23 23:15) Medications Given in ED Current Medications Medications Dose Ordered Sig/C[place]an Route Start Time Stop Time Status Last Admin Dose Admin Aspirin 324 mg ONCE ONCE PO 05/10/23 21:15 05/10/23 21:18 DC 05/10/23 21:30 324 MG Enoxaparin Sodium 90 mg ONCE ONCE SC 05/10/23 23:15 05/10/23 23:16 DC 05/11/23 00:14 90 MG Nitroglycerin 1 inch ONCE ONCE TOP 05/10/23 23:00 05/10/23 23:01 DC 05/10/23 23:04 1 INCH Ondansetron HCl 8 mg ONCE ONCE IVP 05/10/23 21:15 05/10/23 21:18 DC 05/10/23 21:29 8 MG Vital Signs/I&O 05/10/23 21:02 Temp 36.9 Pulse 89 Resp 18 B/P (MAP) 190/96 (127) O2 Delivery Room Air Capillary Refill : Progress Note : Time: 22:30 Progress Note Patient seen and evaluated by me. Evaluation today includes physical exam, chest pain protocol - CBC, CMP, Mag, Trop, coags, EKG, Single view CXR. Pertinent physical exam findings - Hypertensive with a SBP 190's, not tachy or hypoxic. WDWn male in mild distress due to nausea and "heaviness" in the chest. He is initially quite grumpy and seems to not really want to answer questions. He is convinced he has had an "TN" this evening. His heart is regular, no obvious murmurs or gallops. Lungs diminished without wheezes or ronchi. Abd is non tender. No LE edema. No focal neurological deficits. ddx includes hypertensive urgency v emergency, STEMI/ACS patient's labs independently reviewed and interpreted by me. HIs CBC shows a WBC of 9.0 with 78% segmented neutrophils. H7H and platelets within normal range. His CMP is pertinent for increased BUN/Cr of 22 and 2.08 (improved from prior visits - creat was 4 before). His blood sugar is elevated at 340. Mag low at 1.4, troponin elevated at 0.049. Coags WNL. CXR - no concerning p athology, infiltrate, effusion. EKG is NSR without ectopy or ST segment change. Patient is given 324mg baby aspirin. He is also given zofran 8mg for his nausea. Patient improved with the Aspirin and zofran and after labs identified elevated troponin patient was given nitropaste (for slight ongoing pain) and lovenox at 1mg/kg. I discussed the patient with Dr Kohli, will admit for serial troponin and cardiac consultation. Patient states he does not currently have a blasting machine operator "because there are none here". I advised him we do have cardiology and he will see one while here in the hospital. He is agreeable to admission. Bridge orders written; will consult cards in am. Patient has no findings concerning for emergent catheterization. ADmit to cardiac stepdown unit and trend troponin. Blodd pressure improved at time of admission. ECG Initial ECG Impression Date: May 10, 2023 Initial ECG Impression Time: 21:10 Initial ECG Rate: 86 Initial ECG Rhythm: Normal Sinus Initial ECG Intervals NM 157 QRS 110 Qtc 447 Comment no ectopy; no ST elevation or depression Diagnostic Imaging Diagonstic Imaging: Xray Plain Films/CT/US/NM/MRI: chest Comments [facility]. [place], [place] NAME: LAURENCE ROMO [facility] REC#: [id number] PT STATUS: REG ER : 1960 PHYSICIAN: MERA URBINA MD ADMIT DATE: 05/10/23/ER Signed Date of Exam:05/10/23 CHEST 1 VIEW, AP/PA ONLY EXAMINATION: Chest 1 view HISTORY: Chest pain. COMPARISON: None available. FINDINGS: The lung volumes are normal. Hazy opacities are seen in the lung bases. No large pleural effusion or pneumothorax is seen. The heart size is prominent with post-CABG changes. No acute osseous abnormality is seen. IMPRESSION: 1. Cardiomegaly. Hazy opacities in the lung bases may represent atelectasis and/or edema. Dictated by: Dictated on workstation # [id number] Dict: 05/10/232149 Trans: 05/10/232151 [facility] [id number] Interpreted by: JOVANNA MURILLO DO Electronically signed by: JOVANNA MURILLO DO 05/10/232151 Counseling-Symptomatic: 3-10 Minutes Departure Communication (Admissions) Time/Spoke to Admitting Phy: 22:[address] Kohli - accepts to Cardiac Step Down; Impression Primary Impression: Chest pain Qualified Codes: R07.9 - Chest pain, unspecified Additional Impression: Elevated troponin Disposition: ADMITTED INPATIENT Condition: Stable Admissions Decision to Admit Reason: Admit from ER (General) Decision to Admit/Date: May 10, 2023 Time/Decision to Admit Time: 23:04 Departure-Patient Inst. Referrals: NILESH TERRAZAS (PCP/Family) Primary Care Physician MERA URBINA MD May 10, 2023 21:20
[2023-05-10 21:36] LABS: BASOPHILS # (AUTO) 0.1 10^3/uL (0.0-0.1); BASOPHILS % (AUTO) 1 % (0-10); EOSINOPHILS % (AUTO) 0 % (0-10); HEMATOCRIT 36 % (40-54); HEMOGLOBIN 13.1 g/dL (13.3-17.7); LYMPHOCYTES # (AUTO) 1.3 10^3/uL (1.0-4.0); LYMPHOCYTES % (AUTO) 14 % (12-44); MEAN CORPUSCULAR HEMOGLOBIN 33 pg (25-34); MEAN CORPUSCULAR HGB CONC 36 g/dL (32-36); MEAN CORPUSCULAR VOLUME 90 fL (80-99); MEAN PLATELET VOLUME 10.6 fL (9.0-12.2); MONOCYTES # (AUTO) 0.6 10^3/uL (0.0-1.0); MONOCYTES % (AUTO) 7 % (0-12); NEUTROPHILS % (AUTO) 78 % (42-75); PLATELET COUNT 194 10^3/uL (130-400)
[2023-05-10 21:45] LABS: ALBUMIN 4.6 GM/DL (3.2-4.5)
[2023-05-10 21:46] LABS: CHLORIDE 99 MMOL/L (98-107); POTASSIUM 4.7 MMOL/L (3.6-5.0); SODIUM 137 MMOL/L (135-145)
[2023-05-10 21:47] LABS: INR 1.1 (0.8-1.4)
[2023-05-10 21:48] LABS: GLUCOSE 340 MG/DL (70-105); TOTAL PROTEIN 8.1 GM/DL (6.4-8.2)
[2023-05-10 21:49] LABS: CARBON DIOXIDE 20 MMOL/L (21-32)
[2023-05-10 21:51] LABS: ALKALINE PHOSPHATASE 105 U/L (40-136)
--- NOTE | 2023-05-10 21:51 | Diagnostic Imaging Report ---
EXAMINATION: Chest 1 view HISTORY: Chest pain. COMPARISON: None available. FINDINGS: The lung volumes are normal. Hazy opacities are seen in the lung bases. No large pleural effusion or pneumothorax is seen. The heart size is prominent with post-CABG changes. No acute osseous abnormality is seen. IMPRESSION: 1. Cardiomegaly. Hazy opacities in the lung bases may represent atelectasis and/or edema. Dictated by: Dictated on workstation # [id number]
[2023-05-10 21:52] LABS: CREATININE SERUM 2.08 MG/DL (0.60-1.30); GFR ESTIMATED 36
[2023-05-10 21:53] LABS: BUN/CREATININE RATIO 11
[2023-05-10 21:54] LABS: ALANINE AMINOTRANSFERASE 13 U/L (0-55); MAGNESIUM 1.4 MG/DL (1.6-2.4)
[2023-05-10] MEDS ORDERED: NITROGLYCERIN 2% OINT 1 GM UNIT DOSE PACKET TOP ONE (23:00)
[2023-05-10] MEDS ORDERED: ENOXAPARIN 100 MG/1 ML SYRINGE SC ONE (23:15)
[2023-05-10 23:45] VITALS: BP 166/100
[2023-05-10 23:48] VITALS: BP 177/89
[2023-05-11] VITALS (10 sets, daily range): BP systolic 133–190; BP diastolic 52–117
[2023-05-11] MEDS ORDERED: meTOprolol TARTRATE (IR) 50 MG TABLET PO SCH
[2023-05-11] MEDS ORDERED: NS IV 1000 ML 1,000 ML ONE (00:01)
[2023-05-11] MEDS ORDERED: ONDANSETRON INJECTION 4 MG/2 ML (SDV) ONE (00:02)
[2023-05-11] MEDS: ONDANSETRON INJECTION 4 MG/2 ML (SDV) IV PRN ×2 (00:08→06:21)
[2023-05-11] MEDS ORDERED: MELATONIN 3 MG TABLET PO PRN (00:15)
[2023-05-11] MEDS ORDERED: HYDROcodone/ACETAMINOPHEN 5 MG/325 MG TABLET PO PRN (00:15)
[2023-05-11] MEDS ORDERED: NS IV 1000 ML 1,000 ML IV SCH (00:15)
[2023-05-11] MEDS ORDERED: ACETAMINOPHEN 325 MG TABLET PO PRN (00:15)
[2023-05-11] MEDS ORDERED: RT-Ipratropium/Albuterol NEB 3 ML VIAL INH PRN (03:30)
[2023-05-11 05:16] LABS: CALCIUM 9.9 MG/DL (8.5-10.1); CREATININE SERUM 2.26 MG/DL (0.60-1.30); POTASSIUM 4.5 MMOL/L (3.6-5.0)
[2023-05-11] MEDS ORDERED: inSUlin ASPART 1 UNIT/0.01 ML (PER UNIT) SC SCH (06:00)
[2023-05-11] MEDS ORDERED: PANTOPRAZOLE 20 MG TABLET PO SCH (07:00)
--- NOTE | 2023-05-11 08:12 | Consultation-Cardiology ---
HPI-Cardiology Cardiology Consultation Date of Consultation 05/11/23 Date of Admission Time Seen by Provider: 08:08 Indication: Non-ST elevation myocardial infarction HPI 62 years old gentleman with history of coronary artery disease, CABG, multiple intervention and chronic renal insufficiency. Patient reported that he was having nausea and vomiting and dizziness. Came into the emergency room for evaluation. When I walked into the room this morning he was upset that he did not like the breakfast and he said the food tasted terrible. He was upset that he could not see a mines inspector for the past year and he has been trying to to schedule an appointment. I explained to him that there are multiple mines inspector available in [facility] and he can call and make an appointment at any time. He denied any chest pain, reported some chest pressure after his nausea and vomiting. I offered him my services, patient refused and expressed that he has been fighting with his and he wanted to get in his car and leave the town. Home Medications & Allergies Allergies: Coded Allergies: Penicillins (Verified Allergy, Severe, RASH, 11/28/21) Home Medication List Reviewed: Yes [id number]-Iorhyu-Wfdjzn Hx Patient Social History Marital Status: Smoking Status: Current Everyday Smoker Alcohol Use?: No Substance type: Marijuana Past Medical History Discussed below Review of Systems-General Review of Systems Constitutional: see HPI, malaise EENTM: no symptoms reported Respiratory: see HPI, short of breath Cardiovascular: see HPI, chest pain Gastrointestinal: see HPI, abdominal pain (RUQ), nausea, vomiting Genitourinary: decreased output Musculoskeletal: no symptoms reported Skin: no symptoms reported Psychiatric/Neurological: Other (dizziness) Reviewed Test Results Reviewed Test Results Lab Laboratory Tests Test 05/10/23 21:21 05/11/23 04:23 Range/Units White Blood Count 9.0 4.3-11.0 10^3/uL Red Blood Count 4.01 L 4.30-5.52 10^6/uL Hemoglobin 13.1 L 13.3-17.7 g/dL Hematocrit 36 L 40-54 % Mean Corpuscular Volume 90 80-99 fL Mean Corpuscular Hemoglobin 33 25-34 pg Mean Corpuscular Hemoglobin Concent 36 32-36 g/dL Red Cell Distribution Width 13.7 10.0-14.5 % Platelet Count 194 130-400 10^3/uL Mean Platelet Volume 10.6 9.0-12.2 fL Immature Granulocyte % (Auto) 0 % Neutrophils (%) (Auto) 78 H 42-75 % Lymphocytes (%) (Auto) 14 12-44 % Monocytes (%) (Auto) 7 0-12 % Eosinophils (%) (Auto) 0 0-10 % Basophils (%) (Auto) 1 0-10 % Neutrophils # (Auto) 7.0 1.8-7.8 10^3/uL Lymphocytes # (Auto) 1.3 1.0-4.0 10^3/uL Monocytes # (Auto) 0.6 0.0-1.0 10^3/uL Eosinophils # (Auto) 0.0 0.0-0.3 10^3/uL Basophils # (Auto) 0.1 0.0-0.1 10^3/uL Immature Granulocyte # (Auto) 0.0 0.0-0.1 10^3/uL Prothrombin Time 14.0 12.2-14.7 SEC INR Comment 1.1 0.8-1.4 Activated Partial Thromboplast Time 35 24-35 SEC Sodium Level 137 137 135-145 MMOL/L Potassium Level 4.7 4.5 3.6-5.0 MMOL/L Chloride Level 99 101 98-107 MMOL/L Carbon Dioxide Level 20 L 22 21-32 MMOL/L Anion Gap 18 H 14 5-14 MMOL/L Blood Urea Nitrogen 22 H 23 H 7-18 MG/DL Creatinine 2.08 H 2.26 H 0.60-1.30 MG/DL Estimat Glomerular Filtration Rate 36 32 BUN/Creatinine Ratio 11 10 Glucose Level 340 H 259 H 70-105 MG/DL Calcium Level 10.0 9.9 8.5-10.1 MG/DL Corrected Calcium 8.5-10.1 MG/DL Magnesium Level 1.4 L 1.6-2.4 MG/DL Total Bilirubin 1.0 0.1-1.0 MG/DL Aspartate Amino Transf (AST/SGOT) 17 5-34 U/L Alanine Aminotransferase (ALT/SGPT) 13 0-55 U/L Alkaline Phosphatase 105 40-136 U/L Myoglobin 126.3 H 10.0-92.0 NG/ML Troponin I 0.049 H 0.039 H <0.028 NG/ML Total Protein 8.1 6.4-8.2 GM/DL Albumin 4.6 H 3.2-4.5 GM/DL Triglycerides Level 168 H <150 MG/DL Cholesterol Level 145 < 200 MG/DL LDL Cholesterol Direct 84 1-129 MG/DL VLDL Cholesterol 34 5-40 MG/DL HDL Cholesterol 33 L 40-60 MG/DL Physical Exam Physical Exam Vital Signs Vital Signs - First Documented 05/10/23 05/10/23 05/11/23 21:02 23:33 03:10 Temp 36.9 Pulse 89 Resp 18 B/P (MAP) 190/96 (127) Pulse Ox 94 O2 Delivery Room Air FiO2 21 Capillary Refill : Height, Weight, BMI Height: '" Weight: lbs. oz. kg; 31.28 BMI Method: General Appearance: WD/WN, Chronically ill Eyes: Bilateral Eye Normal Inspection, Bilateral Eye PERRL, Bilateral Eye EOMI HEENT: PERRL/EOMI Neck: Normal Inspection Respiratory: Lungs Clear, Normal Breath Sounds, No Accessory Muscle Use, No Respiratory Distress Cardiovascular: Regular Rate, Rhythm, Normal Peripheral Pulses (1+ radial bilateral) Gastrointestinal: Soft, Tenderness (RUQ - neg Ryder's sign) Extremity: Normal Inspection, Normal Range of Motion, No Pedal Edema Neurologic/Psychiatric: Alert, Oriented x3, No Motor/Sensory Deficits, Normal Mood/Affect, Other (slightly verbally agressive; a little beligerant but redirectable) Skin: Normal Color, Warm/Dry A/P-Cardiology Admission Diagnosis Non-ST elevation myocardial infarction Coronary artery disease Nausea and vomiting Acute renal failure Assessment/Plan Non-ST elevation myocardial infarction, conservative management Patient is refusing services Coronary artery disease, history of CABG, multiple interventions in the past. Acute on chronic renal failure, receiving IV hydration Nausea and vomiting, reporting improvement Patient is requesting to sign AGAINST MEDICAL ADVICE. Clinical Quality Measures Smoking Cessation Counseling: Counseling-Symptomatic: 3-10 Minutes SRIDEVI RG MD May 11, 2023 08:11
--- NOTE | 2023-05-11 08:22 | Short Stay Summary-Hospitalist ---
History of Present Illness Source: RN/MD Exam Limitations: other Date Seen 05/11/23 Time Seen by a Provider: 08:30 Attending Physician Josue Harrison PCP Admitting Physician: Kenyatta Ornelas DO Attending Physician: Kenyatta Ornelas DO Referring Physician Date of Admission May 10, 2023 at 23:18 Home Medications & Allergies Home Medications Reviewed patient Home Medication Reconciliation performed by pharmacy medication reconciliations animal health technician and/or nursing. Patients Allergies have been reviewed. Allergies Allergies Coded Allergies Penicillins (Verified Allergy, Severe, RASH, 11/28/21) Past Ohazvzz-Rbkxbq-Dlscoh Hx Patient Social History Marrital Status: Tobacco Use?: Yes Tobacco type used: Cigarettes Smoking Status: Current Everyday Smoker Use of E-Cig and/or Vaping dev: No Substance use?: Yes Substance type: Marijuana Substance frequency: Daily Alcohol Use?: No Pt feels they are or have been: No Immunizations Up To Date Tetanus Booster (TDap): More Than 5 Years Hepatitis A: No Hepatitis B: No Current Status Advance Directives: No Communicates: Verbally Primary Language: [place] Preferred Spoken Language: [place]ankan Is interpretation needed?: No Implanted or Applied Medical D: Stents Past Medical History Hypertension Diabetes, Non-Insulin dep Review of Systems Constitutional: see HPI Physical Exam Physical Exam Vital Signs Vital Signs - First Documented 05/10/23 05/10/23 05/11/23 21:02 23:33 03:10 Temp 36.9 Pulse 89 Resp 18 B/P (MAP) 190/96 (127) Pulse Ox 94 O2 Delivery Room Air FiO2 21 Capillary Refill : Height, Weight, BMI Height: '" Weight: lbs. oz. kg; 31.28 BMI Method: General Appearance: WD/WN, Chronically ill, Other (left ama) Eyes: Bilateral Eye Normal Inspection, Bilateral Eye PERRL, Bilateral Eye EOMI HEENT: PERRL/EOMI Neck: Normal Inspection Respiratory: Lungs Clear, Normal Breath Sounds, No Accessory Muscle Use, No Respiratory Distress Cardiovascular: Regular Rate, Rhythm, Normal Peripheral Pulses (1+ radial bilateral) Gastrointestinal: Soft, Tenderness (RUQ - neg Ryder's sign) Extremity: Normal Inspection, Normal Range of Motion, No Pedal Edema Neurologic/Psychiatric: Alert, Oriented x3, No Motor/Sensory Deficits, Normal Mood/Affect, Other (slightly verbally agressive; a little beligerant but redirectable) Skin: Normal Color, Warm/Dry Results Results/Procedures Labs Laboratory Tests 05/10/23 21:21 05/11/23 04:23 Patient resulted labs reviewed. Short Stay Diagnosis Discharge Diagnosis-Short Stay Admission Diagnosis Left AMA before seen Final Discharge Diagnosis Left AMA before seen Conclusion Plan Left AMA before seen Clinical Quality Measures Smoking Cessation Counseling: Counseling-Symptomatic: 3-10 Minutes KENYATTA ORNELAS DO May 11, 2023 08:22
[2023-05-11] MEDS ORDERED: ASPIRIN 81 MG CHEWABLE TABLET PO SCH (09:00)
[2023-05-11] MEDS ORDERED: CITALOPRAM 20 MG TABLET PO SCH (09:00)
[2023-05-11] MEDS ORDERED: ENOXAPARIN 100 MG/1 ML SYRINGE SC SCH (09:00)
== END 2023-05-11 08:11 | disposition left against medical advice (07) ==
LOC: EDUNIT# 20:42 → ER 20:45 → CSD 23:18
PROVIDERS: ADMIT Internal Medicine; ATTEND Internal Medicine
DX: I21.4 Non-ST elevation (NSTEMI) myocardial infarction (principal); I25.10 Atherosclerotic heart disease of native coronary artery without angina pectoris; N18.9 Chronic kidney disease, unspecified; N17.9 Acute kidney failure, unspecified; E11.22 Type 2 diabetes mellitus with diabetic chronic kidney disease; R11.2 Nausea with vomiting, unspecified; R77.8 Other specified abnormalities of plasma proteins; F17.210 Nicotine dependence, cigarettes, uncomplicated; Z95.1 Presence of aortocoronary bypass graft; Z79.82 Long term (current) use of aspirin; Z79.899 Other long term (current) drug therapy
CPT/HCPCS: 71045; 80048; 80053; 80061; 83735; 83874; 84484 ×2; 85025; 85610; 85730; 93005 ×2; 93041; 94760; 96372; 96376; 99284; G0378; 36415